=== PATIENT | female | born 1995 | race African-American/Black ===

== ENCOUNTER 2021-06-03 21:47 | Outpatient (CLI) | payer OTHER | END 2021-06-03 21:48 | disposition EMS.NT | LOC: EMS 21:47 | DX: R07.89 Other chest pain (principal); R42 Dizziness and giddiness ==

== ENCOUNTER 2021-06-03 22:52 | Emergency (ER) | payer OTHER ==
[2021-06-04] MEDS ORDERED: KETOROLAC 60 MG/2 ML VIAL IM STA (00:43)
[2021-06-04] MEDS ORDERED: CHERRY SYRUP 10 ML UDC PO ONE (00:43)
[2021-06-04] MEDS ORDERED: DEXAMETHASONE 10 MG/ML VIAL PO STA (00:43)
--- NOTE | 2021-06-04 00:49 | ED Physician Documentation ---
PD HPI CHEST PAIN - Stated complaint Stated Complaint: CHEST PX - Chief complaint Chief Complaint: Cardiac - History obtained from History obtained from: Patient - History of Present Illness Timing - onset: Enter time (529), Today Timing - onset during: Exertion Timing - duration: Hours Timing - details: Abrupt onset, Still present Pain level now: 4 Quality: Tightness Location: Substernal Radiation: No: Jaw, Neck, Back, Abdominal, Left upper extremity, Right upper extremity Improved by: Rest Worsened by: Inspiration Associated symptoms: Shortness of air, Feeling faint / dizzy. No: Diaphoresis, Nausea, Vomiting, General Weakness, Palpitations, Cough Similar symptoms before: Has not had sx before Recently seen: Not recently seen - Additional information Additional information: Previously well 26-year-old Mitzi Torres was out on a run this morning at 5:30 in the morning when she began to feel some tightening in her anterior chest this was enough that she had to stop her run. She has had persistence of these symptoms throughout the day today and has some pain if she takes a deep breath. She is able to breathe without difficulty otherwise. She rates her pain as 4 out of 10 currently. She has not had this pain previously she does not have a history of asthma and she has not been ill recently. She denies any radiation of the pain denies any diaphoresis or nausea associated with the pain. When I questioned the patient about the possibility of having had a break-up with her boyfriend and sobbing about 5 nights ago she laughed. How would I know that. I suspect her symptoms are related. Review of Systems Constitutional: denies: Fever Eyes: denies: Decreased vision Ears: denies: Ear pain Nose: denies: Rhinorrhea / runny nose, Congestion Throat: denies: Sore throat Cardiac: reports: Chest pain / pressure. denies: Palpitations, Pedal edema, Calf pain Respiratory: reports: Dyspnea. denies: Cough, Hemoptysis, Wheezing GI: denies: Abdominal Pain, Nausea, Vomiting : denies: Dysuria, Frequency PD PAST MEDICAL HISTORY - Past Medical History Past Medical History: No Cardiovascular: None Respiratory: None Neuro: None Endocrine/Autoimmune: None GI: None [employer]: None : None HEENT: None Psych: None Musculoskeletal: None Derm: None - Past Surgical History Past Surgical History: No - Present Medications Home Medications: Ambulatory Orders Medication Instructions Recorded Confirmed No Known Home Medications 06/03/21 06/03/21 - Allergies Allergies/Adverse Reactions: Allergies Allergy/AdvReac Type Severity Reaction Status Date / Time No Known Drug Allergies Allergy Verified 06/03/21 23:08 - Social History Does the pt smoke?: No Smoking Status: Never smoker Does the pt drink ETOH?: Yes Does the pt have substance abuse?: No - Immunizations Immunizations are current?: Yes - POLST Patient has POLST: No PD ED PE NORMAL - Vitals Vital signs reviewed: Yes (normal ) - General General: Alert and oriented X 3, No acute distress, Well developed/nourished - HEENT HEENT: Atraumatic, PERRL, EOMI - Neck Neck: Supple, no meningeal sign, No bony TTP - Cardiac Cardiac: RRR, No murmur - Respiratory Respiratory: No respiratory distress, Clear bilaterally, Other (No chest wall tenderness to palpation .) - Abdomen Abdomen: Soft, Non tender - Back Back: No CVA TTP, No spinal TTP - Derm Derm: Normal color, Warm and dry, No rash - Extremities Extremities: No deformity, No edema - Neuro Neuro: Alert and oriented X 3, campus dean 2-12 intact, No motor deficit, No sensory deficit, Normal speech Eye Opening: Spontaneous Motor: Obeys Commands Verbal: Oriented GCS Score: 15 - Psych Psych: Normal mood, Normal affect Results - Vitals Vitals: Vital Signs - 24 hr 06/03/21 06/04/21 06/04/21 22:57 00:06 00:52 Temperature 36.1 C L Heart Rate 96 73 87 Respiratory 16 17 16 Rate Blood Pressure 130/78 108/68 116/80 O2 Saturation 100 100 100 Oxygen O2 Source Room air - EKG (time done) 2301 Rate: Rate (enter#) (89) Rhythm: NSR Ischemia: Normal ST segments Compare to prior EKG: Old EKG unavailable Computer interpretation: Agree with computer - Rads (name of study) chest Radiology: Prelim report reviewed (Impression: Chest without acute cardiopulmonary abnormalities or focal airspace disease.), EMP read indepedently, See rad report PD MEDICAL DECISION MAKING - ED course Complexity details: reviewed results, re-evaluated patient, considered differential, d/w patient, d/w family ED course: 26-year-old female presents to the emergency department with chest pain. This is pleuritic in nature and an inciting incident is uncovered in the history. I did asked the patient whether she was feeling suicidal or had excess excessive stress related to the break-up and she indicated that she did not. She is treated here in the emerge department with dexamethasone 10 mg orally and 60 mg of Toradol IM. A chest x-ray is obtained Departure - Departure Disposition: 01 Home, Self Care Clinical Impression: Chest wall pain Condition: Stable Instructions: ED Chest Pain Costochondritis Follow-Up: ERIN Garcia [Provider Group] Comments: Mitzi, today it looks like the chest pain you are experiencing, the tightness in your chest when you try to take a deep breath, is related to a fatigue of the chest wall. Likely related to sobbing about 5 nights ago. The expectation is resolution of your symptoms within the week and the treatment that will help the most is some ibuprofen. If you do take this medication make certain you take it with food.
--- NOTE | 2021-06-04 01:06 | XRAY Report ---
PROCEDURE: Chest 1 View X-Ray INDICATIONS: chest pain TECHNIQUE: One view of the chest was acquired. COMPARISON: None. FINDINGS: Surgical changes and devices: None. Lungs and pleura: No pleural effusions or pneumothorax. Lungs are clear. Mediastinum: Mediastinal contours appear normal. Heart size is normal. Bones and chest wall: No suspicious bony lesions. Overlying soft tissues appear unremarkable. IMPRESSION: Chest without acute cardiopulmonary abnormalities or focal airspace disease. Reviewed by: Stalin Fuentes MD on 06/04/2021 1:05 AM PDT Approved by: Stalin Fuentes MD on 06/04/2021 1:05 AM PDT Station ID: [id number]
[2021-06-04 01:16] VITALS: BP 107/73
== END 2021-06-04 01:26 | disposition home or self-care (01) ==
LOC: ED 22:52
DX: R07.89 Other chest pain (principal)
CPT/HCPCS: 71045; 93005; 96372; 99282; 99284; A9270